=== PATIENT | female | born 1975 | race Caucasian/White ===

== ENCOUNTER 2021-02-11 14:07 | Outpatient (REF) | payer OTHER, SELFPAY ==
[2021-02-11 14:56] LABS: COVID-19 Test Negative (Negative)
== END 2021-02-11 14:08 | disposition home or self-care (01) ==
LOC: HO.LAB 14:07
PROVIDERS: PCP Internal Medicine; Visit Provider Internal Medicine
DX: Z20.822 Contact with and (suspected) exposure to COVID-19 (principal)
CPT/HCPCS: 36415; 87635; C9803

== ENCOUNTER 2021-02-13 19:07 | Emergency (ER) | payer OTHER, SELFPAY ==
--- NOTE | ~2021-02-13 | CT_ITS ---
EXAMINATION: CT HEAD WITHOUT CONTRAST CLINICAL INFORMATION: Headache. Head injury. COMPARISON: None. TECHNIQUE: Contiguous axial imaging was performed from the skull base to vertex without intravenous administration of contrast. Coronal and sagittal reformatted images are performed at the CT scanner. [This CT examination was performed using dose optimization techniques as appropriate, variously including the following: *Automated exposure control *Adjustment of mA and/or kV according to patient size (this includes techniques or standardized protocols for targeted exams where dose is matched to indication/reason for exam; i.e. extremities or head) *Use of iterative reconstruction technique] DLP: 683 mGy-cm. FINDINGS: There is no evidence of acute intracranial hemorrhage or territorial infarction. No abnormal mass-effect or midline shift is seen. Perales to white matter differentiation is well preserved. No extra-axial fluid collections are identified. The ventricles are normal in size. There is no abnormal attenuation within the brain parenchyma. There is no osseous abnormality. The mastoid air cells and visualized portions of the paranasal sinuses are well-aerated. CT/CT head/brain wo con IMPRESSION: No acute intracranial pathology.
[2021-02-13 19:34] VITALS: BP 122/66; PULSE 78; RESP 18; TEMP 36.6; O2SAT 100; BMI 21.1
--- NOTE | 2021-02-13 21:19 | ED.HEATRA ---
HPI - Head Injury General Chief complaint: General Medical Stated complaint: fell and hit her head ,blurry vision Time Seen by Provider: 02/13/21 21:14 Source: patient Mode of arrival: ambulatory Limitations: no limitations History of Present Illness MD Complaint: head injury, head pain and fall Onset (ago): month(s) (occurred on 01/27 in [place]) Mechanism of Injury: fall (states she was tased by police fell back and hit her head) Place: outdoors Loss of Consciousness: unsure Location of injury: occipital Severity: moderate Quality: aching Radiation: none Other Injuries: other (reports tased in hand) Associated symptoms: other (noted she is having trouble focusing in her L eye since then - went to eye doctor this week she had full dilated exam no injury noted given her symptoms recommend she see a specialist but also CT scan to evaluate ICH) Related Data Allergies Allergy/AdvReac Type Severity Reaction Status Date / Time clindamycin [CLINDAMYCIN] Allergy Unknown HIVES Unverified 11/29/19 15:08 clindamycin AdvReac Unknown hives Uncoded 11/16/19 00:00 Review of Systems Review of Systems: Constitutional : No Fever, No Chills, No Fatigue ENT/Mouth : No sore throat, No Rhinorrhea Eyes: No Eye Pain, No Swelling, No Redness, pos blurry vision L eye Cardiovascular : No Chest Pain, No SOB, No Dyspnea on Exertion Respiratory : No Cough, No Sputum Gastrointestinal : No Nausea, No Vomiting, No Diarrhea, No abdominal Pain Genitourinary : No Dysuria, No Urinary Frequency, No Hematuria, Musculoskeletal : No joint pain, No Myalgias, No Joint Swelling Skin : No Skin Lesions, No rash Neuro : No Weakness, No Numbness, No Dizziness, positive Headache All other systems reviewed and are negative [facility] Past Medical History Attestation statement: The following information was validated with the patient. Medical History (Updated 02/13/21 @ 22:29 by Sandra Saavedra DO) Bipolar 1 disorder No known health problems Social History Social History (Updated 02/13/21 @ 21:38 by Sandra Saavedra DO) Patient Tobacco Use Status: Tobacco use Unknown Advance Directives: No Advance Directives Information Provided: Yes Physical Exam Vital Signs: Vital Signs: Last Vital Signs Temp 97.8 F 02/13/21 19:34 Pulse 78 02/13/21 19:34 Resp 18 02/13/21 19:34 BP 122/66 02/13/21 19:34 Pulse Ox 100 02/13/21 19:34 BMI result Body Mass Index 21.1 Appearance: Alert. Oriented X3. No acute distress. Eyes: Pupils equal, round and reactive to light. ENT: Pharynx normal. Neck: Normal inspection. CVS: Normal heart rate and rhythm. Pulses normal. Respiratory: No respiratory distress. Abdomen: appears atraumatic Skin: Skin warm and dry. Normal skin color. Extremities: No lower extremity edema. Neuro: Oriented X 3. No motor deficit. No sensory deficit. Course Course Course Narrative: negative head CT MDM - Head Injury MDM Narrative Medical decision making narrative: 45 yo female with hx of bipolar reports a manic episode on 01/27 which resulted in her being tased by police and she fell backwards striking her head she is unsure of LOC and is not on oral AC therapy - since then reports L eye blurry vision was seen by an eye doctor with fully dilated exam no trauma noted, sent here for imaging to r/o ICH. CT head ordered. Has further eye appointment with specialist as well. No reported detachment or vitreous hemorrhage reported Discharge Plan Discharge Clinical Impression: Head injury Qualifiers: Encounter type: sequela Qualified Code(s): S09.90XS - Unspecified injury of head, sequela Patient Disposition: Home, Self-Care Instructions: Head Injury (ED) Additional Instructions: return to ED for any worsening symptoms or concerns please follow up with your equipment specialist There is no evidence of acute intracranial hemorrhage or territorial infarction. No abnormal mass-effect or midline shift is seen. Perales to white matter differentiation is well preserved. No extra-axial fluid collections are identified. The ventricles are normal in size. There is no abnormal attenuation within the brain parenchyma. There is no osseous abnormality. The mastoid air cells and visualized portions of the paranasal sinuses are well-aerated.
== END 2021-02-13 22:49 | disposition home or self-care (01) ==
PROVIDERS: Emergency Provider Emergency Medicine; PCP Internal Medicine
DX: S09.90XA Unspecified injury of head, initial encounter (principal); W18.30XA Fall on same level, unspecified, initial encounter; Y93.9 Activity, unspecified; Y92.9 Unspecified place or not applicable; Y99.9 Unspecified external cause status
CPT/HCPCS: 70450; 99283; 99284

== ENCOUNTER 2022-12-17 21:13 | Emergency (ER) | payer OTHER, SELFPAY ==
[2022-12-17 21:19] VITALS: BP 140/86; PULSE 65; RESP 18; TEMP 36.3; O2SAT 99; BMI 22.5
--- NOTE | 2022-12-18 00:01 | ED.EYEPROB ---
HPI - Eye Problem General Chief complaint: Eye Problems Stated complaint: eye irritation Time Seen by Provider: 12/17/22 23:56 Source: patient Mode of arrival: ambulatory Limitations: no limitations History of Present Illness HPI Narrative: Patient comes to the emergency room complaining of a burning sensation in her left eye. Patient states that accidentally she used her ear drums border into her left eye. Ear drops contain acetic acid and hydrocortisone. Patient states her eye knutson. No other injuries. Related Data Previous Rx's Medication Instructions Recorded erythromycin 5 mg/gram (0.5 %) eye 1 appl ophthalmic-Left TID #3.5 12/18/22 ointment grams Allergies Allergy/AdvReac Type Severity Reaction Status Date / Time clindamycin [CLINDAMYCIN] Allergy Unknown HIVES Verified 12/17/22 21:19 clindamycin AdvReac Unknown hives Uncoded 11/16/19 00:00 Review of Systems Review of Systems: Constitutional : No Weight loss, No Fever, No Chills, No Night Sweats, No Fatigue, No Malaise ENT/Mouth : No Hearing loss, No Ear Pain, No Nasal Congestion, No Sinus Pain, No Hoarseness, No sore throat, No Rhinorrhea, No Swallowing Difficulty Eyes: Complaining of eye burning, redness, vision back to normal Cardiovascular : No Chest Pain, No SOB, No Dyspnea on Exertion, No Orthopnea, No Edema, No Palpitations Respiratory : No Cough, No Sputum, No Wheezing, No Smoke Exposure, No Dyspnea Gastrointestinal : No Nausea, No Vomiting, No Diarrhea, No Constipation, No abdominal Pain, No Hematochezia, No Melena Genitourinary : no irregular bleeding, No Dysuria, No Urinary Frequency, No Hematuria, No Urinary Incontinence, No Urgency, No Flank Pain, No Urinary Flow Changes, No Hesitancy Musculoskeletal : No joint pain, No Myalgias, No Joint Swelling Skin : No Skin Lesions, No rash Neuro : No Weakness, No Numbness, No Paresthesias, No Loss of Consciousness, No Dizziness, No Headache Psych : No Anxiety/Panic, No Depression, No SI/HI/AH/VH, No Social Issues, Heme/Lymph: No Bruising, No Bleeding,No Lymphadenopathy Endocrine : No Polyuria, No Polydipsia, No Temperature Intolerance PMFSH Past Medical History Medical History Bipolar 1 disorder No known health problems Social History Social History (Updated 02/13/21 @ 21:38 by Vicki Saavedra DO) Patient Tobacco Use Status: Tobacco use Unknown Advance Directives: No Physical Exam Vital Signs: Vital Signs: Last Vital Signs Temp 97.3 F 12/17/22 21:19 Pulse 65 12/17/22 21:19 Resp 18 12/17/22 21:19 BP 140/86 H 12/17/22 21:19 Pulse Ox 99 12/17/22 21:19 O2 Del Method Room Air 12/17/22 21:19 BMI result Body Mass Index 22.5 Const: Other: Appearance: Alert. Oriented X3. No acute distress. Eyes: Pupils equal, round and reactive to light. Sclerae are erythematous. Fluorescein stain test shows normal sclera, no cornea lacerations or ulcerations, negative Dinora, eye pressure 13 mmHg bilaterally ENT: Pharynx normal. Neck: Normal inspection. Neck supple. No lymph nodes noted. No crepitus CVS: Normal heart rate and rhythm. Pulses normal. Normal S1 and S2 Respiratory: No respiratory distress. Breath sounds normal. No Wheezing. No rales Abdomen: Soft and nontender. No rigidity. No distention. Skin: Skin warm and dry. Normal skin color. Normal skin turgor. Extremities: No lower extremity edema. No Lacerations. No Rash Neuro: Oriented X 3. No motor deficit. No sensory deficit. Moving all extremities. No slurred speech. CN 2 through 12 grossly intact Psych: calm, cooperative, normal affect Medical Decision Making Medical Decision Making MDM Narrative: -patient's eye was thoroughly rinsed with normal saline. -on physical exam, there are no corneal ulcerations/abrasions. -per patient, her vision is back to normal. Patient will follow-up with ophthalmology/primary care physician -patient given a prescription for erythromycin ointment for symptomatic treatment as well as infection prevention Differential Diagnosis Differential Diagnoses: The differential diagnosis associated with the presentation includes (Eye irritation, cornea abrasion, cornea ulceration) Discharge Plan Discharge Clinical Impression: Corneal irritation of left eye Patient Disposition: Home, Self-Care Instructions: Eye Pain (ED) Additional Instructions: Please follow-up with your primary care physician tomorrow. If you have any worsening or new symptoms, please return to the emergency room or call 911 Prescriptions: New erythromycin 5 mg/gram (0.5 %) ointment 1 appl ophthalmic-Left TID Qty: 3.5 0RF
== END 2022-12-18 00:55 | disposition home or self-care (01) ==
PROVIDERS: Emergency Provider Emergency Medicine
DX: H18.892 Other specified disorders of cornea, left eye (principal); H57.12 Ocular pain, left eye
CPT/HCPCS: 99281; 99283

== ENCOUNTER 2025-01-11 11:55 | Outpatient (AMB) | payer OTHER, SELFPAY ==
[2025-01-11 12:07] VITALS: BP 126/70; PULSE 94; TEMP 36.8; O2SAT 98; BMI 22.7
--- NOTE | 2025-01-11 12:07 | MHC.OFFWIV ---
Intake Vital Signs 01/11/25 12:07 Height 5 ft 7 in Weight 145 lb BMI 22.7 BP 126/70 Blood Pressure Location Lt brachial Position Sitting Pulse 94 Pulse Source Pulse Oximeter Temp 98.2 F Temp Source Oral Pulse Oximetry (%) 98 Oxygen Delivery Method Room Air Intake Visit Reasons: ep burning pressure when urinating Patient Tobacco Use Status: Tobacco use Unknown Allergies No Known Allergies Allergy (Verified 01/11/25 12:15) Do you need a note to return to daycare/school/sports/work: No HPI HPI Comments History of Present Illness Details This is a 49-year-old female with a past medical history of bipolar disorder presenting for evaluation of urinary pressure and dysuria that started this morning. Patient reports having chills but denies having any fevers, abdominal pain or flank pain. Patient has not taken any medication for treatment of her symptoms and denies having any vaginal discharge. [facility] Medical History Bipolar 1 disorder No known health problems Social History (Updated 02/13/21 @ 21:38 by Vicki Saavedra DO) Patient Tobacco Use Status: Tobacco use Unknown Review of Systems Const All systems reviewed & are unremarkable except as noted in HPI and below Reports no additional complaints, Denies body aches and Denies fever(s) GI Denies nausea and Denies vomiting Reports no additional complaints, Denies hematuria, Reports dysuria, Denies flank pain and Denies vaginal discharge Musc Reports no additional complaints Skin/Breast Reports system reviewed and no additional complaints, except as documented Neuro Reports no additional complaints Physical Exam Vital Signs: Last Vital Signs Temp 98.2 F 01/11/25 12:07 Pulse 94 01/11/25 12:07 BP 126/70 01/11/25 12:07 Pulse Ox 98 01/11/25 12:07 Oxygen Delivery Method Room Air 01/11/25 12:07 BMI result Body Mass Index 22.7 Const General: cooperative, healthy appearing, comfortable, no acute distress, well developed, alert, awake, Physically active and well groomed; No lethargic Nutritional Appearance: average body habitus Orientation/consciousness: patient oriented x3 and No lethargic Limitations: no limitations GI Inspection: Yes normal to inspection Palpation (GI): Soft to palpation, nontender and no guarding General: Yes Bimanual renal exam normal bilaterally, Yes bladder normal to palpation and Yes no CVA tenderness Bimanual exam- vagina & uterus: bladder normal to palpation Back/Spine/Pelvis Back: no CVA tenderness Skin General skin exam: no rashes or lesions noted Neuro General: patient oriented x3 Psych Appearance: grossly normal Mental Status: mental status grossly normal Insight: Good insight present (Psych) Judgement: Good judgement present (Psych) Results Reviewed Results Reviewed: Urinalysis is reviewed - positive for leukocytes and blood. Assessment & Plan Assessment & Plan (1) Dysuria: Comment: Patient's urinalysis is reviewed. She will be discharged home with Macrobid and Pyridium for initial management of this acute urinary tract infection. Code(s): R30.0 - Dysuria Plan: Macrobid 100 mg b.i.d. x7 days, Pyridium 100 mg TID PRN dysuria. Orders: Orders AMB Urinalysis Automated Today Nicki Rutledge PA-C Z13.9 - Encounter for screening, unspecified Urine Culture Today Mari Peres PA-C R30.0 - Dysuria Medications: New phenazopyridine (Pyridium) 100 mg PO TID PRN 10 tabs 0RF pain Mari Peres PA-C nitrofurantoin monohyd/m-cryst 100 mg (Macrobid) must administer with a meal/food 100 mg PO BID 14 caps 0RF Mari Peres PA-C Discontinued erythromycin Discontinued Reason: Patient Completed Course 1 appl ophthalmic-Left TID 3.5 grams 0RF Coding Level of Care Code Est Pt Level 3 (79101) Diagnoses Dysuria R30.0 Time Spent (min) 20
--- OUTSIDE RECORDS SUMMARY | 2025-01-11 13:30 | XMS_ITS | Encounter Summary ---
Author Organization [facility] Address [address] [place] [address] [place] [id number] Phone Care Team Providers Care Process Control Programmer Name Role Phone Mekhi Stevens Primary Care Provider [phone] Encounter Details Date Type Department Care Team ([facility] st Contact Info) Description 07/12/2023 Procedure Pass [facility] Admitting Dept Virtual Department [address] [place] [address] Social History Tobacco Use Types Packs/Day Years Used Date Smoking Tobacco: Some Days Smokeless Tobacco: Never Comments:Vapes -stopped ciga rette in 2019 Alcohol Use Standard Drinks/Week Comments Yes 0 (1 standard drink = 0.6 oz pur e alcohol) 3 per month Education Answer Date Recorded Are you interested in more education? Not on coco e 07/09/2022 Are you concerned about learning? Not on file 07/09/2022 No 07/09/2022 No 07/09/2022 Digital Access Answer Date Recorded No 08/09/2022 No 08/09/2022 Reliable internet access at home? Not on file 08/09/2022 Device with a working camera? Not on file Comments No Sex and Gender Information Value Date Recorded Sex Assigned at Female 11/26/2021 5:44 PM EDT Legal Sex Female 9:25 PM EDT Gender Identity Female 11/26/2021 5:44 PM EDT Sexual Orientation Don't know 11/26/2021 5: 44 PM EDT documented as of this encounter Plan of Treatment Not on file documented as of this encounter Visit Diagnoses Not on filedocumented in this encounter Care Teams Process Control Programmer Relationship Specialty Start Date End Date Mekhi Stevens PA [email or web address] PCP - General Internal Medicine 09/01/21 documented as of this encounter Additional Source Comments The information contained in this document represents components of the legal health record. It is not the complete legal health record.[facility]
--- OUTSIDE RECORDS SUMMARY | 2025-01-11 13:30 | XMS_ITS | Encounter Summary ---
Author Organization [facility] Address [address] [place] [id number] Phone Care Team Providers Care Yardage Control Clerk Name Role Phone Mekhi Stevens Primary Care Provider [phone] Encounter Details Date Type Department Care Team (Late st Contact Info) Description 11/12/2021 Procedure Pass [address] [address] Social History Tobacco Use Types Packs/Day Years Used Date Smoking Tobacco: Some Days Smokeless Tobacco: Never Alcohol Use Standard Drinks/Week Comments Yes 0 (1 standard drink = 0.6 oz pur e alcohol) Comments No Sex and Gender Information Value [...] on filedocumented in this encounter Care Teams Yardage Control Clerk Relationship Specialty Start Date End Date Mekhi Stevens PA [email or web address] PCP - General Internal Medicine 09/01/21 documented as of this encounter Additional Source Comments The information contained in this document represents components of the legal health record. It is not the complete legal health record.[facility]
--- OUTSIDE RECORDS SUMMARY | 2025-01-11 13:30 | XMS_ITS | Data Portability ---
Author Organization [place] - [facility], Allergy Address [address] [address] Care Team Providers Care Boilermaker Helper Name Role Phone CLAUDIO DREW Primary Care Provider [phone] Assessment Encounter Date Assessment Date Assessment LastModified by Organization Details LastModified Time 11/21/2024 11/21/2024 Assessment: - Right submandibular gland, possible small salivary stones. Plan: The patient has small stones in the right submandibular gland, measuring approximately 2-4 mm. These stones are not causing obstruction or significant symptoms at this time. I educated the patient on the importance of staying hydrated and avoiding dehydration caused by diuretics such as caffeine and alcohol. I recommended drinking plenty of water and using sugar-free sour candies to stimulate saliva production. A CT scan of the area will be ordered to confirm the presence and size of the stones. Based on the imaging results, further discussion will determine whether any intervention is necessary. The patient was counseled on the potential side effects of medications such as lamotrigine and hydroxyzine, which can cause dry mouth and reduce saliva flow. Follow-up will be scheduled after imaging results are available. [email or web address] Not available 11/21/2024 09:42:34 Plan of Treatment Reminders Order Date Submit Date Provider Last Modified By Organization Details Last Modified Time Details Appointments None recorded. Lab None recorded. Referral None recorded. Procedures None recorded. Surgeries None recorded. Imaging CT, neck, soft tissue, w/ contrast 2024 025 [email or web address] [facility], [address], [place], [address], 11:15:46 Medication Orders None recorded. Patient TargetsNo targets recorded. Patient Instructions Encounter Date Encounter Id Patient Instructions Last Modified By Organization Details Last Modified Time 11/21/2024 [id number] - Stay hydrated by drinking plenty of water. - Avoid excessive consumption of diuretics such as caffeine and alcohol. - Use sugar-free sour candies to stimulate saliva production. - Follow up after the CT scan results are available. [email or web address] Not available 11/21/2024 09:42:34 Please note: Parts of this encounter note have been generated by AI based on audio conversation. Patient consent was required prior to utilizing this technology. Content review was required prior to finalizing the note. [email or web address] Not available 11/21/2024 09:42:34 Reason for Referral None Reported. Results Created Date Observation Date Name Description Value Unit Range Abnormal Flag Note LastModifiedBy Organization Detail LastModifiedTime 12/07/1912/04/2024 CT, neck, soft tissu e, w/ contr ast No observ ation record ed. [place] [address], [address], 12/06/2024 11:43:23 12/07/1912/04/2024 CT, neck, soft tissu e, w/ contr ast No observ ation record ed. [place] [facility] [address], [address], 12/06/2024 11:43:24 Result Notes None recorded. Problems Name Problem SNOMED Code Status Onset Date Resolution Date Notes Provider Name and Address Organization Details Recorded Time Sialoadenitis of the submandibular gland 683381051 Active 2024 HILARIO LANGFORD MD [address] [address], [place], [address], [facility] - [facility] 09:42:18 Sialolithiasis 52128637 Active 2024 HILARIO LANGFORD MD [address] [place] [address] 100, [place], [address], [facility] - [facility] 09:42:42 Mass of head and/or neck 930409913 Active 2024 HILARIO LANGFORD MD [address] [address], [facility] [place], [address], [facility] - [facility] 09:43:06 Bipolar disorder 95006256 Active 2024 HILARIO LANGFORD MD 100 [facility] 100, [facility] [place], [address], [facility] - [facility] 09:45:53 Problem Notes None recorded. Medical Equipment None Reported. Allergies No known drug allergies Medications Name Sig Start Date Stop Date Status Note LastModified by Organization Details LastModified Time lamotrigine 200 mg tablet TAKE 1 TABLET BY MOUTH ONCE DAILY active Not Available Not Available No t Available valacyclovi r 1 gram tablet TAKE 1 TABLET BY MOUTH ONCE DAILY active Not Available Not Available No t Available hydroxyzine pamoate 50 mg capsule TAKE 1 CAPSULE BY MOUTH ONCE DAILY NEEDED. PLEASE SCHEDULE APPOINTME NT WITH YOUR PROVIDER FOR ADDITIONA L REFILLS active Not Available Not Available No t Available nicotine (polacrilex ) 4 mg gum CHEW AND PARK 1 PIECE OF GUM EVERY 2 HOURS NEEDED DIRECTED active Not Available Not Available No t Available cephalexin 500 mg capsule TAKE 1 CAPSULE BY MOUTH 4 TIMES A DAY FOR 5 DAYS. 11/21 completed Not Available Not Available Not Available amoxicillin 875 mg-potassiu m clavulanate 125 mg tablet TAKE 1 TABLET BY MOUTH EVERY 12 HOURS FOR 7 DAYS 11/21 completed Not Available Not Available Not Available Vitals Date Recorded Body height Body weight Provider Name and Address Organization Details Last Updated DateTime 11/21/2024 167.64 cm 41526.89 g Georgina Smith [place] - [facility] 11/21/2024 09:06:54 Social History None recorded. Functional Status None recorded. Mental Status None recorded. Family History Nothing Reported. Medical History No medical history recorded. Gynecological HistoryNo gynecological history recorded. Obstetrics History GPAL:G 0 P 0 0 0 0 Past Encounters Encounter ID Performer Location Encounter Start Date Encounter Closed Date Diagnosis/Indication Diagnosis SNOMED-CT Code Diagnosis ICD10 Code Diagnosis IMO Codes Diagnosis Note [id number] HILARIO STEVENS MD [facility] [address] [place] [address] 11/21/2024 08:51:37 11/21/2024 09:45:31 Sialoadenitis of the submandibular gland 517025926 K11.20 0437517 Sialolithiasis 47299713 K11.5 7991 Bipolar disorder 7778336 4 F31.9 1776124 Health Concerns Section Related Observation LastModified by Organization Detai ls LastModified Time None Recorded Concern Status LastModified by Organization Details LastModified Time None Recorded Advance Directives Directive None Recorded Payers Insurance Date Sequence Insurance Name Policy Number Policy Mahajan Covered Member ID Mahajan Member ID Guarantor Name 11/21/2024 1 [facility] - DOS ON OR AFTER 2022 - ONE CARE (MEDICARE REPLACEMENT/ADV ANTAGE - HMO) Bev Silverman [id number] Bev Silverman Notes Date Note Type Note Provider Name and Address Organization Details Recorded Time 11/21/2024 text/html Bev Silverman is a 49-year-old female who presents for evaluation of the right submandibular gland. A few months ago, she experienced swelling in the gland associated with pressure, prompting her to palpate the area under her tongue. She noted a significant difference between the left and right sides, with the right side feeling hard and round. The swelling resolved as she recovered from her illness, but she continues to feel a firm area in the right submandibular region. She denies pain, changes in swelling during eating, or other associated symptoms. Her social history includes working in [employer], vaping with a nicotine concentration of three milligrams, and consuming a couple of cups of coffee and alcoholic drinks per week. She denies any history of surgeries or other medical conditions. HILARIO COLINDRES MD [address] [place] [address], [phone], [facility] - [facility] 11/21/2024 09:46:35 OBGyn Episode No OBEpisode recorded.
--- OUTSIDE RECORDS SUMMARY | 2025-01-11 13:30 | XMS_ITS | Encounter Summary ---
Author Organization [facility] Address [address] [place] [address] Phone Care Team Providers Care Booth Supervisor Name Role Phone Mekhi Stevens Primary Care Provider [phone] Reason for Referral * Consultation (Routine) - Closed Specialty Diagnoses / Procedures Referred By Juaquin marcus Referred To Contact Genetics Diagnoses Family history of malignant neoplasm of breast Mekhi Stevens PA Phone: tel: fax: [email or web address] [facility] [address] [place] [address] Phone: tel: Referral ID Status Reason Start Date Expiration Date Visits Re quested Visits Authorized [id number] Closed 08/17/2022 08/18/2023 1 1 Encounter Details Date Type Department Care Team (Late st Contact Info) Description 08/17/2022 Transcribe Orders Virtual Department [address] [place] [address] Mekhi Stevens PA [address] [place] [phone] [email or web address] Family history of malignant neoplasm of breast (Primary Dx) Social History Tobacco Use Types Packs/Day Years Used Date Smoking Tobacco: Some Days Smokeless Tobacco: Never Alcohol Use Standard Drinks/Week Comments Yes 0 (1 standard drink = 0.6 oz pur e alcohol) Education Answer Date Recorded Are you interested [...] as of this encounter Plan of Treatment Scheduled Referrals Name Type Priority Associated Diagnoses Order Schedule Ambulatory referral to [facility] Cancer Genetics Outpatient Referral Routine Family history of malignant neoplasm of breast Ordered: 08/17/2022 documented as of this encounter Visit Diagnoses Diagnosis Family history of malignant neoplasm of breast- Primary documented in this encounter Care Teams Booth Supervisor Relationship Specialty Start Date End Date Mekhi Stevens PA [email or web address] PCP - General Internal Medicine 09/01/21 documented as of this encounter Additional Source Comments The information contained in this document represents components of the legal health record. It is not the complete legal health record.[facility]
--- OUTSIDE RECORDS SUMMARY | 2025-01-11 13:30 | XMS_ITS | Clinical Summary ---
Author Organization [facility] Address [address] [place] [address] Care Team Providers Care Publicity Manager Name Role Phone No, Referring Primary Care Provider Unavailabl e Medications No known medications Immunizations Immunization Administration Dates Next Due Tetanus Toxoid, Reduced Diph theria Toxoid, and Acellular Pertussis Vaccine, Adsorbed 05/24/2024 Social History Tobacco Use Types Packs/Day Years Used Date Smoking Tobacco: Never Assessed Comments Unknown Sex and Gender Information Value Date Recorded Sex Assigned at Not on file Legal Sex Female 6:34 PM EDT Gender Identity Not on file Sexual Orientation Not on file Last Filed Vital Signs Vital Sign Reading Time Taken Comments Blood Pressure 140/86 05/24/2024 6:42 PM EDT Pulse 64 05/24/2024 6:42 PM EDT Temperature 36.6 C (97.9 F) 05/24/2024 6:42 PM EDT Respiratory Rate 20 05/24/2024 6:42 PM EDT Oxygen Saturation 98% 05/24/2024 6:42 PM EDT Inhaled Oxygen Concentration - - Weight 65.8 kg (145 lb) 05/24/2024 6:42 PM EDT Height - - Body Mass Index - - Plan of Treatment Health Maintenance Due Date Last Done Comments Cervical Cancer Screening 1977 Cologuard 1977 Colon Cancer Screening 1977 Colonoscopy 1977 FOBT / Fit Test 1977 HIV Screening 1977 HPV and Pap Smear 1977 Hepatitis C Screening 1977 Pap Smear 1977 Sigmoidoscopy 1977 Hepatitis B Vaccines (1 of 3 - 19+ 3-dose series) 1996 Mammogram 02/09/2024 02/08/2022, 02/08/2022 Alcohol/Substance Use Screening 03/14/2024 Depression Screening and Follow-Up 03/14/2024 Social Drivers of Health Annual Screening 03/14/2024 COVID-19 Vaccine (3 - 2024-2 6 season) 2024 06/30/2021, 05/22/2021 Influenza Vaccine (#1) 2024 12/15/2016 DTaP,Tdap,and Td Vaccines (2 - Td or Tdap) 05/24/2034 05/24/2024, 11/22/2018, 08/25/2011 RSV Vaccine (60+ years old a nd patients) (1 - 1-dose 75+ series) 2052 Pneumococcal Vaccine: Pediatric (0-5 Years) and At-Risk Patients (6-50 Years) Aged Out No longer eligible based on patient's age to complete this topic Insurance Care Teams Publicity Manager Relationship Specialty Start Date End Date No, Referring PCP - General 05/24/24
--- OUTSIDE RECORDS SUMMARY | 2025-01-11 13:31 | XMS_ITS | Clinical Summary ---
Author Organization [facility] Address [address] [facility] [address] [place] [address] Phone Care Team Providers Care Electronics Mechanic Name Role Phone Mekhi Stevens Primary Care Provider Allergies Active Allergy Reactions Criticality Noted Date Comments Amoxicillin 12/31/2021 Patient denies Medications * This document contains information received from the source organization and may not represent a complete record from that organization. OLANZapine (ZYPREXA) 5 MG tablet Take 1 tablet (5 mg total) by mouth nightly at bedtime as needed (trouble sleeping). 30 tablet 2 Active Additional Information Patient not taking.Reported on 07/11/2023 hydrOXYzine (VISTARIL) 50 MG capsule 2 Active lithium carbonate 300 MG capsule Take 1 capsule (300 mg total) by mouth daily AND 2 capsules (600 mg total) nightly at bedtime. 90 capsule 2 Active lamoTRIgine (LAMICTAL) 200 MG IMMEDIATE release tablet Take 1 tablet by mouth every morning. 4 Active valACYclovir (VALTREX) 1000 MG tablet Take 1,000 mg by mouth. 4 Active nicotine polacrilex (NICORETTE) [address] 4 mg inside cheek as needed. 4 Active Active Problems Problem Noted Date Diagnosed Date Bipolar disorder 11/27/2021 Immunizations Immunization Administration Dates Next Due Influenza Quadrivalent Prese rvative Free IM 12/02/2021(Deferred: Patient Refused) Family History Medical History Relation Comments Breast cancer Mother Relation Status Comments Mother Social History Tobacco Use Types Packs/Day Years Used Date Smoking Tobacco: Former Cigarettes Smokeless Tobacco: Never Tobacco Cessation:Counseling Given: Not Answered Comments:Vapes -stopped cigarette in 2019 Alcohol Use Standard Drinks/Week Comments [...] with a working camera? Not on file Intimate Partner Violence Answer Date R ecorded Are you denied basic needs s uch as food, clothing, or medical care? No 10/03/2023 In the past 12 months have y ou been in a relationship with a person who hurts, threatens, or tries to control you? No 10/03/2023 Are you denied basic needs s uch as food, clothing, or medical care? No 10/03/2023 In the past 12 months have y ou been in a relationship with a person who hurts, threatens, or tries to control you? No 10/03/2023 Comments No Sex and Gender Information Value Date Recorded Sex Assigned at Female 11/26/2021 5:44 PM EDT Legal Sex Female 9:25 PM EDT Gender Identity Female 11/26/2021 5:44 PM EDT Sexual Orientation Don't know 11/26/2021 5: 44 PM EDT Last Filed Vital Signs Vital Sign Reading Time Taken Comments Blood Pressure 115/70 10/04/2023 2:53 PM EDT Pulse 59 10/04/2023 2:53 PM EDT Temperature 36 C (96.8 F) 10/04/2023 2:37 PM EDT Respiratory Rate 16 10/04/2023 2:53 PM EDT Oxygen Saturation 100% 10/04/2023 2:53 PM EDT Inhaled Oxygen Concentration - - Weight 68 kg (150 lb) 10/03/2023 10:54 AM EDT Height 170.2 cm (5' 7 ) 07/11/2023 9:04 AM EDT Body Mass Index 23.49 07/11/2023 9:04 AM EDT Plan of Treatment Health Maintenance Due Date Last Done Comments Adult Td,Tdap Booster 1975 DEPRESSION SCREENING 1989 SMOKING Hx and SMOKELESS TOBACCO SCREENING 1990 HEPATITIS C SCREENING 11/02/1995 HIV ONE-TIME SCREENING (18-65 YEARS) 11/02/1995 COLOGUARD 2022 FIT TEST 2022 FOBT 2022 SIGMOIDOSCOPY 2022 VIRTUAL COLONOSCOPY 2022 MAMMOGRAM 02/09/2024 02/08/2022, 08/12, 08/17/2017, Additional history exists INFLUENZA VACCINE (#1) 2024 COVID-19 VACCINE ( season) 2024 PAP SMEAR 09/05/2026 09/06/2023, 05/20/2022 LIPID PANEL 11/29/2026 11/29/2021 COLONOSCOPY 10/03/2033 10/04/2023, 07/12/2023 COLORECTAL CANCER SCREENING 10/03/2033 HEPATITIS A VACCINES Aged Out No long er eligible based on patient's age to complete this topic HIB VACCINES Aged Out No longer eligi ble based on patient's age to complete this topic MENINGOCOCCAL VACCINES (ACWY) Aged Out No longer eligible based on patient's age to complete this topic MENINGOCOCCAL VACCINES (B) Aged Out N o longer eligible based on patient's age to complete this topic PNEUMOCOCCAL VACCINES (0-49 years) Aged Out No longer eligible based on patient's age to complete this topic Medical Devices Not on file Procedures Procedure Name Priority Date/Time Associated Diagnosis Comments ENDOSCOPY, COLON 10/04/2023 2:18 PM EDT PAP TEST Routine 09/06/2023 12:00 AM EDT BI MAMMOGRAM SCREENING WITH TOMOSYNTHESIS WITH CAD (BILATERAL) Routine 02/08/2022 2:53 PM EST Breast screening LIPID PANEL Routine 11/29/2021 7:07 AM EDT from Last 3 Months or Most Recently Relevant to Health Maintenance Results * ENDOSCOPY, COLON (10/04/2023 2:18 PM EDT) Narrative Transcriptions Joao Botello MD - 10/04/2023 2:18 PM EDT [facility] Patient Name: Shaun Reddy Attending MD:: JOAO BOTELLO MD, , Procedure Date: 10/04/2023 2:18 PM Date of : 1975 Age: 47 Admit Type: Outpatient Gender: Female Room: [place] [address] Referring MD: Mekhi Stevens Exam Type: Colonoscopy Indications: Screening for colorectal malignant neoplasm Medications: Monitored Anesthesia Care Procedure: Informed consent was obtained from the patientafter discussion of the indications, limitations, alternatives, benefits, and risks of the procedure. Risks specifically discussed include but are not limited to medication reactions, missed lesions, bleeding, perforation, or the need for emergent surgery. Throughout the procedure, the patient's blood pressure, pulse, end-tidal CO2, and oxygensaturations were monitored continuously. The Olympus pediatric variable colonoscopePCF-[id number] #5 was introduced through the anus and advanced tothe cecum, identified by appendiceal orifice andileocecal valve. The colonoscopy was performed without difficulty. The patient tolerated the procedurewell. The quality of the bowel preparation was excellent. The quality of the bowel preparation was evaluated using the BBPS ([place] Bowel Preparation Scale)with scores of: Right Colon = 3, Transverse Colon = 3and Left Colon = 3 (entire mucosa seen well with no residual staining, small fragments of stool oropaque liquid). The total BBPS score equals 9. Anatomical landmarks were photographed. Complications: No immediate complications. Estimated blood loss:None. Findings: The perianal and digital rectal examinations were normal. Scattered small-mouthed diverticula were found inthe sigmoid colon and ascending colon. Internal hemorrhoids were found duringretroflexion. The hemorrhoids were mild. The exam was otherwise normal throughout theexamined colon. Impression: - Mild diverticulosis in the sigmoid colon and inthe ascending colon. - Internal hemorrhoids. - No specimens collected. Recommendation: - Discharge patient to home. - Repeat colonoscopy in 7 years for screeningpurposes due to father with colon cancer in 70s; also with marya JOAO BOTELLO MD, 10/04/2023 2:35:20 PM This report has been signed electronically. Number of Addenda: 0 Note Initiated On: 10/04/2023 2:18 PM Procedure Code(s): --- Professional --- 39206, Colonoscopy, flexible; diagnostic, including collection of specimen(s) by brushing or washing, when performed (separateprocedure) --- Technical --- 45247, Colonoscopy, flexible; diagnostic, including collection of specimen(s) by brushing or washing, when performed (separateprocedure) Diagnosis Code(s): --- Professional --- Z12.11, Encounter for screening for malignantneoplasm of colon K64.8, Other hemorrhoids K57.30, Diverticulosis of large intestine without perforation or abscess without bleeding --- Technical --- Z12.11, Encounter for screening for malignantneoplasm of colon K64.8, Other hemorrhoids K57.30, Diverticulosis of large intestine without perforation or abscess without bleeding CPT copyright 2021 [employer]. All rights reserved. The codes documented in this report are preliminary and upon health information coder reviewmay be revised to meet current compliance requirements. Procedure Date: 10/04/2023 2:18:53 PM [address] [place] [address] Mekhi AGUILERA GI PROCEDURE ORDERABLES Aquilino meghan Result - Final * Pap Test (09/06/2023 12:00 AM EDT) Report [address] [address] Chemical Pathologist: Chloe Aly MD GAS REGULATOR REPAIRER HELPER Cytology Report FINAL DIAGNOSIS A. PAP SMEAR (THIN PREP) CE: SPECIMEN ADEQUACY: Satisfactory for evaluation; transformation zone present. INTERPRETATION: EPITHELIAL CELL ABNORMALITY - SQUAMOUS. Atypical squamous cells of undetermined significance. This specimen was analyzed by the automated ThinPrep Imaging System (YPlan.) and manually rescreened by a food service associate and/or pathologist. Electronically Signed Out By: LINSEY Castañeda MD([facility]) By his/her signature above, the pathologist listed as making the Final Diagnosis certifies that he/she has personally reviewed this case and confirmed or corrected the diagnosis. The Pap test is a screening test primarily for squamous cancers and precursors and has associated false-negative and false-positive results. New technologies such as liquid-based preparations may decrease but will not eliminate all false-negative results. Regular sampling and follow-up of unexplained clinical signs and symptoms are recommended to minimize false negative results. PROCEDURES/ADDENDA HPV Testing (Requested) Ordered Date: 09/07/2023 A. PAP SMEAR (THIN PREP) CE: Human Papilloma Virus Test NEGATIVE for high-risk Human Papilloma Virus types 16, 18, 45 and the Other high risk probe set (Includes 31, 33, 35, 39, 51, 52, 56, 58, 59, 66, 68) Note: Testing performed by [employer] Onclarity HR-HPV analysis. Clinical correlation is advised. This HPV test was performed at [facility], [address] [place] [address]. This test has been FDA approved for both SurePath and ThinPrep cervical cytology specimens. The accuracy and precision of this test for all other specimen sources has been verified in the Cytopathology Laboratory of the [facility] and has not been cleared or approved by the U.S. Food and Drug Administration. Clinical correlation is advised. CLINICAL HISTORY Date of Last Menstrual Period: Not Provided Menstrual History: No LMP given Other Clinical Conditions: Diagnostic Pap Abnormal PAP: ascus-2022 SPECIMEN SOURCE A: PAP SMEAR (THIN PREP) CE Patient Name: SHAUN REDDY : 1975 (Age: 47) Sex: F Institution: [facility] Location: [facility] Date of Collection: 09/06/2023 Date of Reported: 09/12/2023 16:47 Results to: Miguel AGUILERA [facility] Final Diagnosis A. PAP SMEAR (THIN PREP) CE: SPECIMEN ADEQUACY: Satisfactory for evaluation; transformation zone present. INTERPRETATION: EPITHELIAL CELL ABNORMALITY - SQUAMOUS. Atypical squamous cells of undetermined significance. This specimen was analyzed by the automated ThinPrep Imaging System (YPlan.) and manually rescreened by a food service associate and/or pathologist. [facility] Results\Inte rpretation A. PAP SMEAR (THIN PREP) CE: Human Papilloma Virus TestNEGATIVE for high-risk Human Papilloma Virus types 16, 18, 45 and the Other high risk probe set (Includes 31, 33, 35, 39, 51, 52, 56, 58, 59, 66, 68)Note: Testing performed by [employer] Onclarity HR-HPV analysis. Clinical correlation is advised. This HPV test was performed at [facility], [address] [place] [address]. This test has been FDA approved for both SurePath and ThinPrep cervical cytology specimens. The accuracy and precision of this test for all other specimen sources has been verified in the Cytopathology Laboratory of the [facility] and has not been cleared or approved by the U.S. Food and Drug Administration. Clinical correlation is advised. [facility] Conversion Type (Conversion Source) 09/06/2023 09/07/2023 10:02 AM EDT us Miguel AGUILERA CYTOLOGY ORDERABLES Edited Res ult - Final [facility] [address] [place] [address] * BI MAMMOGRAM SCREENING WITH TOMOSYNTHESIS WITH CAD (BILATERAL) (02/08/2022 2:53 PM EST) Anatomical Region Laterality Modality Breast Left, Breast Right, Breast Bilateral Bila teral Mammography 02/09/2022 3:14 PM EST Impressions 02/09/2022 3:20 PM EST BILATERAL BREASTS: Benign, no specific mammographic evidence of malignancy. Normal interval follow-up is recommended in 12 months. BI-RADS: BI-RADS CATEGORY: 2 - Benign finding. DENSITY: The breast tissue is heterogeneously dense, which could obscure a lesion on mammography. Narrative 02/09/2022 3:20 PM EST STUDY: BI MAMMOGRAM SCREENING WITH TOMOSYNTHESIS WITH CAD (BILATERAL) TECHNIQUE: Bilateral full-field digital screening mammography is obtained and read in conjunction with computer-aided detection. Tomosynthesis as well as 2-D C view imaging were obtained. COMPARISON: Comparison made to multiple prior, most recent August 17, 2017, and most remote April 13, 2016. BREAST COMPOSITION: The breast tissue is heterogeneously dense, which may obscure small masses. RIGHT BREAST: No significant masses, suspicious calcifications or other abnormalities are seen. LEFT BREAST: Tissue marker from previous needle core biopsy. No significant masses, suspicious calcifications or other abnormalities are seen. Procedure Note Zeenat Sutton MD - 02/09/2022 STUDY: BI MAMMOGRAM SCREENING WITH TOMOSYNTHESIS WITH CAD (BILATERAL) TECHNIQUE: Bilateral full-field digital screening mammography is obtainedand read in conjunction with computer-aided detection. Tomosynthesis aswell as 2-D C view imaging were obtained. COMPARISON: Comparison made to multiple prior, most recent August 17, 2017,and most remote April 13, 2016. BREAST COMPOSITION: The breast tissue is heterogeneously dense, which mayobscure small masses. RIGHT BREAST: No significant masses, suspicious calcifications or otherabnormalities are seen. LEFT BREAST: Tissue marker from previous needle core biopsy. Nosignificant masses, suspicious calcifications or other abnormalities areseen. IMPRESSION: BILATERAL BREASTS: Benign, no specific mammographic evidence ofmalignancy. Normal interval follow-up is recommended in 12 months. BI-RADS: BI-RADS CATEGORY: 2 - Benign finding. DENSITY: The breast tissue is heterogeneously dense, which could obscurea lesion on mammography. Mehki AGUILERA IMG MG EXAMS Final Resul t * (ABNORMAL) Lipid panel (11/29/2021 7:07 AM EDT) HDL 56 mg/dL [facility] Comment: Interpretation <40 mg/dL: Low HDL cholesterol (major risk factor for CHD) Greater than or equal to 60 mg/dL: High HDL cholesterol ( negative risk factor for CHD) HDL - cholesterol is affected by a number of factors, e.g. smoking, excerise, hormones, sex and age. CHOLESTEROL 165 0 - 240 mg/dL [facility] TRIGLYCERIDES 148 30 - 160 mg/dL [facility] LDL 79 50 - 129 mg/dL [facility] Comment: LDL levels in terms of risk for coronary heart disease: <100 mg/dL: Optimal 100-129 mg/dL: Near or above optimal 130-159 mg/dL: Borderline high 160-189 mg/dL: High >190 mg/dL: Very High CARDIAC RISK RATIO 2.9(L) 3.3 - 4.4 C [facility] Blood 11/29/2021 7:07 AM EDT 11/29/2021 7:45 AM EDT Allyssa Martin MD LAB BLOOD ORDERABLES Final Re sult [facility] [address] [place] [address] from Last 3 Months or Most Recently Relevant to Health Maintenance Insurance MEDICARE PART A & B CARE MEDICARE REPLACEMENT [place]OPE[place] [id number] MEDICARE PART A & B CARE MEDICARE REPLACEMENT [place] [id number] MEDICARE PART A & B Member Subscriber Plan / Payer (Ef fective 2014-Present) Name:Shaun Reddy Member ID:[id number] Relation to Subscriber:Self Name:Shaun Reddy Subscriber ID:[id number] Payer ID:[id number] Group ID:Not on file Type:Medicare Address: [employer] [address] ONE CARE MEDICARE REPLACEMENT WILLY LOPEZ [facility] MEDICARE PART A & B ONE CARE MEDICARE REPLACEMENT WILLY LOPEZ [id number] MEDICARE PART A & B CARE MEDICARE REPLACEMENT WILLY LOPEZ [id number] MEDICARE PART A & [place] [address] [address] CARE MEDICARE REPLACEMENT MEDICARE PART A & B [email or web address] [facility] ONE CARE MEDICARE REPLACEMENT WILLY LOPEZ [id number] MEDICARE PART A & B ONE CARE MEDICARE REPLACEMENT , [address] [address] MEDICARE PART A & B [facility] ONE CARE MEDICARE REPLACEMENT Advance Directives For more information, please contact: [phone] (9AM - 5PM [facility], Tuesday-Tuesday) * Full Code (Latest Code Status on File) Date Activated Date Inactivated Comments 11/27/2021 10:26 PM Question Answer Comments Code Status Confirmed With: Patient Care Teams Electronics Mechanic Relationship Specialty Start Date End Date Mekhi Stevens PA [email or web address] PCP - General Internal Medicine 09/01/21 Additional Source Comments The information contained in this document represents components of the legal health record. It is not the complete legal health record.[facility]
--- OUTSIDE RECORDS SUMMARY | 2025-01-11 13:31 | XMS_ITS | Encounter Summary ---
Author Organization [facility] Address [address] [place] [address] [address] [place] [address] Phone Care Team Providers Care Business Intelligence Consultant Name Role Phone Mekhi Stevens Primary Care Provider [phone] Encounter Details Date Type Department Care Team ([facility] st Contact Info) Description 10/04/2023 Procedure Pass [facility] Endoscopy Admitting Dept Virtual Department [address] [place] [address] Social History Tobacco Use Types Packs/Day Years Used Date Smoking Tobacco: Former Cigarettes Smokeless Tobacco: Never Comments:Vapes -stopped ciga rette [...] on filedocumented in this encounter Care Teams Business Intelligence Consultant Relationship Specialty Start Date End Date Mekhi Stevens PA [email or web address] PCP - General Internal Medicine 09/01/21 documented as of this encounter Additional Source Comments The information contained in this document represents components of the legal health record. It is not the complete legal health record.[facility]
== END 2025-01-11 12:35 | disposition home or self-care (01) ==
PROVIDERS: Visit Provider Physician Assistant
DX: R30.0 Dysuria (principal); Z13.9 Encounter for screening, unspecified

== ENCOUNTER 2025-01-11 11:55 | Outpatient (REF) | payer OTHER, SELFPAY | END 2025-01-11 11:56 | disposition home or self-care (01) | LOC: HO.LNP 11:55 | PROVIDERS: Visit Provider Physician Assistant | DX: R30.0 Dysuria (principal); Z13.89 Encounter for screening for other disorder | CPT/HCPCS: 81003; 87086; 87088; 87186; 99212 ==